=== PATIENT | male | born 1990 | race Two or more races ===

== ENCOUNTER 2017-07-21 02:31 | Emergency (ER) | payer SELFPAY ==
[~2017-07-21] VITALS: Ht 167.6 cm; Wt 63.6 kg
[2017-07-21 02:41] VITALS: BP 126/70
== END 2017-07-21 03:06 | disposition left against medical advice (07) ==
LOC: EMS 02:34
DX: R10.9 Unspecified abdominal pain (principal); Z53.21 Procedure and treatment not carried out due to patient leaving prior to being seen by health care provider